=== PATIENT | male | born 1955 | race Caucasian/White ===

== ENCOUNTER 2018-07-03 19:50 | Inpatient (IN) | payer BC, OTHER ==
[2018-07-03 20:13] LABS: #Basophils 0.1 thou/uL (0.0-0.2); #Eosinphils 0.2 thou/uL (0.0-0.7); #Lymphocytes 4.5 thou/uL (1.20-3.40); %Basophils 0.4 % (0.0-1.0); %Eosinophils 1.2 % (0.0-10.0); %Lymphocytes 32.6 % (21.0-51.0); %Monocytes 6.9 % (0.0-10.0); %Neutrophils 58.8 % (42.0-75.0); Hemoglobin 16.8 g/dL (14.0-18.0); Mean Corpuscular HGB CONC 34.5 g/dL (32.0-36.0); Mean Corpuscular Hemoglobin 33.6 pg (27.0-31.0); Mean Corpuscular Volume 97.4 fL (78.0-98.0); Mean Platelet Volume 7.6 fL (7.4-10.4); Platelet Count 196 thou/uL (130-400); RBC Distribution Width 12.1 % (11.5-14.5); Red Blood Cell (RBC) Count 4.99 mill/uL (4.70-6.10); White Blood Cell (WBC) Count 13.7 thou/uL (4.8-10.8)
[2018-07-03 20:15] LABS: Base Excess-Venous -0.1 mmol/L (0 (+/- 2.5)); CO2 Tension (PvCO2) 32.9 mmHg (41.0-51.0); Calcium, Ionized 0.98 mmol/L (1.12-1.32); Hemoglobin - Calc 17.1 g/dL (12.0-18.0); Lactate 2.65 mmol/L (0.50-2.20); Potassium 5.5 mmol/L (3.4-4.7); pH (Venous) 7.452 (7.35-7.45); vO2 Saturation-calc 99.5 % (94-98)
[2018-07-03] MEDS ORDERED: Amiodarone HCl 450 MG in Dextrose 5% in Water 250 ML IVPB SCH (20:15)
[2018-07-03 20:39] LABS: ALT (SGPT) 52 U/L (8-55); AST (SGOT) 35 U/L (5-34); Albumin 4.8 g/dL (3.4-4.8); Alkaline Phosphatase 91 U/L (40-150); Anion Gap 14 mmol/L (10-20); BUN (Urea Nitrogen) 19 mg/dL (8.4-25.7); Bilirubin, Total 0.4 mg/dL (0.2-1.2); CK (CPK) 154 U/L (30-200); Calc. Creatinine Clearance 0 mL/min (70-130); Calcium 10.4 mg/dL (7.8-10.44); Carbon Dioxide 26 mmol/L (23-31); Chloride 100 mmol/L (98-107); Estimated GFR-MDRD 49; Globulin 3.4 g/dL (2.4-3.5); Glucose 154 mg/dL (80-115); Lipase 38 U/L (8-78); Magnesium 2.1 mg/dL (1.6-2.6); Potassium 4.7 mmol/L (3.5-5.1); Protein, Total 8.2 g/dL (5.8-8.1); Sodium 135 mmol/L (136-145)
[2018-07-03 20:42] LABS: CKMB 5.1 ng/mL (0-6.6)
[2018-07-03] MEDS ORDERED: Acetaminophen 325 MG TAB PO PRN (22:54)
[2018-07-03 23:42] LABS: Lactic Acid 0.9 mmol/L (0.5-2.2)
[2018-07-03 23:59] LABS: Troponin I 1.134 ng/mL (< 0.028)
[2018-07-04 01:02] VITALS: BMI 26.2
[2018-07-04] MEDS ORDERED: Dextrose 50% Abboject 50 ML SYRINGE SLOW IVP PRN (01:58)
[2018-07-04] MEDS ORDERED: Dextrose 5% in Water 1,000 ML IV PRN (01:58)
[2018-07-04] MEDS ORDERED: Insulin Regular 300 UNITS/3 ML VIAL SC PRN (01:58)
[2018-07-04] MEDS ORDERED: Aspirin 325 MG TAB PO SCH (02:00)
[2018-07-04] MEDS ORDERED: Enoxaparin Sodium 100 MG/ML SYRINGE SC SCH (02:00)
[2018-07-04] MEDS ORDERED: Atorvastatin Calcium 20 MG TAB PO SCH (02:00)
[2018-07-04 02:25] LABS: #Basophils 0.1 thou/uL (0.0-0.2); #Eosinphils 0.2 thou/uL (0.0-0.7); #Lymphocytes 2.3 thou/uL (1.20-3.40); #Monocytes 0.7 thou/uL (0.11-0.59); %Basophils 0.7 % (0.0-1.0); %Lymphocytes 25.1 % (21.0-51.0); %Monocytes 7.4 % (0.0-10.0); %Neutrophils 64.7 % (42.0-75.0); Hemoglobin 15.1 g/dL (14.0-18.0); Mean Corpuscular HGB CONC 36.2 g/dL (32.0-36.0); Mean Corpuscular Hemoglobin 34.7 pg (27.0-31.0); Mean Corpuscular Volume 95.9 fL (78.0-98.0); Mean Platelet Volume 7.1 fL (7.4-10.4); Platelet Count 144 thou/uL (130-400); RBC Distribution Width 11.9 % (11.5-14.5); Red Blood Cell (RBC) Count 4.35 mill/uL (4.70-6.10); White Blood Cell (WBC) Count 9.2 thou/uL (4.8-10.8)
[2018-07-04 02:52] LABS: Anion Gap 14 mmol/L (10-20); BUN (Urea Nitrogen) 17 mg/dL (8.4-25.7); Calc. Creatinine Clearance 94 mL/min (70-130); Calcium 9.3 mg/dL (7.8-10.44); Carbon Dioxide 23 mmol/L (23-31); Chloride 103 mmol/L (98-107); Estimated GFR-MDRD 78; Glucose 126 mg/dL (80-115); Potassium 3.5 mmol/L (3.5-5.1); Sodium 136 mmol/L (136-145)
[2018-07-04 03:02] LABS: Troponin I 2.308 ng/mL (< 0.028)
--- NOTE | 2018-07-04 05:09 | HP ---
PRIMARY CARE PHYSICIAN: Osmar Moreno. CODE STATUS: FULL CODE. TIME OF EVALUATION: 11:00 p.m. CHIEF COMPLAINT: Chest tightness. HISTORY OF PRESENT ILLNESS: This is a 63-year-old male patient with past medical history of coronary artery disease, status post CABG in 2005, after that patient has been doing very well, with no major medical problems. The patient also has history of having family members, two siblings dying at his age with a sudden that he assumes had been due to heart attacks, but never had a diagnosis. Si nce his siblings, they did not like to go to the doctor. Patient also has a history of diabetes, hyp erlipidemia, hypertension, came to the hospital after having chest pain. The chest pain has been on and off for the past day, in the left side of the chest, no specific , he reported as pressure-l karl, associated with dizzy spells when the pain was on and no other significant associated factors. The pain continued to come back and he decided to come to the hospital. He was found to be V-tach, t hat resolved after amiodarone 150 mg bolus and drip was started. Patient is back to sinus rhythm, sy mptoms have improved. During my evaluation, he is asymptomatic. Symptoms are reported as moderate w ith no clear triggers and no alleviating factors. REVIEW OF SYSTEMS: Constitutional: No fever, no chills. Generalized weakness. Respiratory: No co ugh, sputum production, or shortness of breath. Cardiovascular: Chest pain. No palpitation or shor tness of breath. Gastrointestinal: No nausea, no vomiting, diarrhea or abdominal pain. 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 Genitourinary: No burning on urination. Extremities: N o leg swelling. All other systems were reviewed and are negative except for the findings mentioned a taylor. PAST MEDICAL HISTORY: Positive for hypertension, diabetes, coronary artery disease, hyperlipidemia. PAST SURGICAL HISTORY: Positive for CABG. PSYCHIATRIC HISTORY: No previous psychiatric history. SOCIAL HISTORY: No alcohol, no drugs. No smoking history. ALLERGIES: No allergies. REPORTED MEDICATIONS: Lasix, simvastatin, Klor-Con, aspirin, lisinopril, metoprolol, Plavix, metform in, glimepiride. PHYSICAL EXAMINATION: VITAL SIGNS: On presentation, heart rate 193, respiratory rate was 16, pain was 1/10, oxygen saturat ion 98. GENERAL APPEARANCE: The patient is alert and oriented, not in any acute distress. HEENT: Eye, normal conjuctivae, moist oral mucosa, anicteric. NECK: No JVD. RESPIRATORY: Bilateral air entry. No rales, no wheezing. Symmetric expansion. CARDIOVASCULAR: Normal rate, regular rhythm. No murmurs, no gallop. No edema. ABDOMEN: Soft, normal bowel sounds. MUSCULOSKELETAL: Baseline range of motion. EXTREMITIES: No tenderness. SKIN: Warm and intact. No pallor, no rash, no redness. Peripheral pulses are present. Capillary r efill seems to be intact. NEUROLOGIC: Baseline sensory. No evidence of any new focal weakness. Baseline speech. Cranial ner ve seems to be intact. PSYCHIATRIC: Patient is in good mood, no anxiety, oriented, and optimal judgment. IMAGING: EKG was reviewed on presentation. Patient had V-tach with occasional PVCs, ventricular rat e 194 with MO remain undetermined, QRS 128, QT corrected 413. LABORATORY DATA: Reviewed. Patient has white count of 13.7, hemoglobin 16.8, MCV 97, platelet count 196. VBG: pH 7.45, pCO2 of 32, pO2 of 158. Sodium 135, potassium 4.7, chloride 100, carbon dioxid e 26, anion gap 14, BUN 19, creatinine 1.45 with no previous values to compare. GFR 49, glucose 154. Lactic acid 0.9, calcium 10.4. Initial troponin was 0.4, second troponin 1.1. Beta natriuretic pe ptide 164. Serum total protein 8.2, lipase 38. ASSESSMENT AND PLAN: The patient had been admitted for the presentation with the following medical p roblems: 1. Ventricular tachycardia has resolved with amiodarone, patient has been placing on amiodarone drip , now in sinus rhythm with no chest pain. No other symptoms, stable. Monitor in the IMCU. 2. Possible non-ST elevation myocardial infarction. Initial troponin 0.4, second troponin is 1.1, s tarted on Lovenox, aspirin, statins, beta blockers will be held since patient is on amiodarone, we wi ll follow Cardiology recommendations. 3. History of coronary artery disease, history of coronary artery bypass graft in 2005, follows ____ _ [facility], coronary artery disease may be playing a role in current presentation. Treatment as above, we will follow Cardiology recommendations. 4. Controlled hypertension. We will reconcile home medications once updated. 5. History of diabetes, it is uncontrolled, with a glucose 154, we will place the patient on the sli ding scale. 6. Deep venous thrombosis prophylaxis, patient in full-dose Lovenox.
[2018-07-04] MEDS ORDERED: Prevnar 13-Val Conj/PF 0.5 ML SYRINGE IM ONE (09:00)
[2018-07-04] MEDS ORDERED: Lisinopril 2.5 MG TAB PO SCH (09:00)
[2018-07-04] MEDS ORDERED: Enoxaparin Sodium 40 MG/0.4 ML SYRINGE SC SCH (09:00)
[2018-07-04] MEDS: Clopidogrel Bisulfate 75 MG TAB PO SCH (09:50)
[2018-07-04] MEDS: Aspirin 325 MG TAB PO SCH (09:50)
--- NOTE | 2018-07-04 10:19 | CON ---
DATE OF CONSULTATION: 07/04/2018 Following encompasses 50 minutes of time, of that greater than 50% was spent with the patient and/or the patient's unit in the hospital. REASON FOR CONSULTATION: IMCU consult. HISTORY OF PRESENT ILLNESS: This is a 63-year-old male who came in yesterday with a recurrent episod e of fluttering in the chest. He said it happened the day before admission, but he did not seek ther apy at that time. In the ER, an EKG suggesting of V-tach versus SVT with aberrancy. He has a previo us history of coronary artery disease and required bypass surgery several years ago. He is currently not having any chest pain or shortness of breath. PAST MEDICAL HISTORY: Diabetes mellitus, coronary artery disease, hypertension. PAST SURGICAL HISTORY: Coronary artery bypass grafting surgery. SOCIAL HISTORY: Does not smoke, does not consume alcohol. ALLERGIES: None. MEDICATIONS PRIOR TO ADMISSION: Lasix, simvastatin, potassium chloride, aspirin, lisinopril, metopro lol, Plavix, metformin, glimepiride. REVIEW OF SYSTEMS: Twelve point review of systems otherwise negative. PHYSICAL EXAMINATION: VITAL SIGNS: Temperature 97.1, pulse 61, blood pressure 127/64, O2 saturation 98%, respiratory rate 16. GENERAL: He is awake and alert, in no distress. HEENT: Unremarkable. NECK: Without adenopathy or JVD. CHEST: Clear without wheezing. CARDIAC: S1, S2 regular, without murmur. ABDOMEN: Soft, nontender. EXTREMITIES: No clubbing, cyanosis, or edema. NEUROLOGIC: Grossly intact throughout. LABORATORY DATA: White blood cell count 9.2, hematocrit 41, platelet count 144, pH 7.45, pCO2 of 32, pO2 158. Sodium 132, potassium 3.5, chloride 103, CO2 23, BUN 17, creatinine 0.9, glucose 126. ASSESSMENT: 1. Cardiac arrhythmia - supraventricular tachycardia versus ventricular tachycardia. 2. History of coronary artery disease. PLAN: This is solely a Cardiology issue. He is stable from a pulmonary and critical care standpoint . We will follow loosely.
[2018-07-04] MEDS ORDERED: Iopamidol 370 76% 100 ML VIAL ONE (11:26)
--- NOTE | 2018-07-04 12:06 | CON ---
DATE OF CONSULTATION: 07/04/2018 REASON FOR CONSULTATION: Ventricular tachycardia. HISTORY OF PRESENT ILLNESS: Mr. Sofia is a very pleasant 63-year-old white gentleman who comes to the hospital for palpitations and chest pain. He states that he did not feel well. Sunday, he had a little chest discomfort and he has been noticing some fluttering and some lightheadedness in the last couple of days. Yesterday, he got really bad, he decided to come in for evaluation and was found to have VT with a heart rate in the 190s in the ER, so he received a dose of IV amiodarone bolus and he converted back to sinus rhythm with a left bundle-branch block and he has been on amiodarone drip ever since. Troponin is also increased. He had a bypass surgery x4 in [address] Norton here in the hospital and he has not had a repeat stress leading several years, but he thinks he might have had an echocardiogram at least about 2 years ago at [facility] where he sees Dr. Reyes. Currently, he is chest pain free. PAST MEDICAL HISTORY: 1. Type 2 diabetes. 2. Coronary artery disease as above. 3. Hypertension. PAST SURGICAL HISTORY: Coronary artery bypass grafting x4 in 2005. SOCIAL HISTORY: No alcohol, tobacco or drugs. ALLERGIES: No known drug allergies. MEDICATIONS: 1. Metformin 500 mg p.o. b.i.d. 2. Potassium chloride 10 mEq a day. 3. Lisinopril 5 mg a day. 4. Glimepiride 2 mg a day. 5. Plavix 75 mg a day. 6. Metoprolol 12.5 mg b.i.d. 7. Zocor 20 mg a day. 8. Furosemide 20 mg a day. REVIEW OF SYSTEMS: A 12-point review of systems was done and is all negative unless stated in the history of present illness. FAMILY HISTORY: Noncontributory. PHYSICAL EXAMINATION: VITAL SIGNS: Temperature 98.0, pulse 66, respiration rate 17, sat 95% on room air, blood pressure 138/65. GENERAL: Awake, alert, oriented x3, in no distress. HEENT: Normocephalic, atraumatic. NECK: Supple. LUNGS: Clear. CARDIOVASCULAR: S1, S2, no S3, S4, no murmurs. ABDOMEN: Soft, positive bowel sounds. EXTREMITIES: No edema. SKIN: Warm and dry. LABORATORY WORK: Reviewed. White count of 13, down to 9.2, hemoglobin of 15.1 , hematocrit 41, platelet count of 144. ABG was reviewed. Chemistry was reviewed. His troponin went from 0.4 to 1.1 then 2.3, creatinine is 1.45 back down to 0.97 today. BNP was 164. Echocardiogram was reviewed, EF of 15-20%. IMPRESSION AND PLAN: 1. Wide complex tachycardia: In the setting of low ejection fraction and coronary artery disease and having a non-STEMI, this is most likely ventricular tachycardia. There is a possibility of this being SVT as he does have an underlying left bundle-branch block; however, given his LV function, I think the best thing to do is to evaluate for ischemia. We will plan on doing a left heart catheterization to make sure that his left ventricular function is not reduced due to losing some of his grafts to see if there is any revascularization by catheter based or maybe just a redo bypass may be needed. I spoke with him at length about the risks and benefits of the procedure, risks including, but not limited to stroke, MA, and need for blood transfusion, limb loss, organ loss, allergic reactions to contrast, renal insufficiency from contrast. He verbalized understanding of this and agrees to proceed. 2. Sustained ventricular tachycardia: Continue amiodarone drip for now. He will need a LifeVest before discharge versus an AICD depending on catheterization findings. 3. Dilated cardiomyopathy: New onset. According to his report, we will ask for records from [facility] to see what his last echo actually showed. Thank you for letting us participate in the care of your patient. We will follow. DANIEL
[2018-07-04] MEDS ORDERED: Midazolam HCl 2 mg/2 ml Vial ONE (12:18)
[2018-07-04] MEDS ORDERED: Fentanyl 100 MCG/2 ML VIAL ONE (12:18)
[2018-07-04] MEDS ORDERED: Acetaminophen/Codeine 30-300mg Tablet PO PRN (13:13)
[2018-07-04] MEDS ORDERED: traMADol HCl 50 MG TAB PO PRN (13:13)
[2018-07-04] MEDS ORDERED: Sodium Chloride 0.9% 1,000 ML IV SCH (13:15)
[2018-07-04] MEDS ORDERED: Sodium Chloride 0.9% 200 ML IV SCH (13:15)
--- NOTE | 2018-07-04 17:52 | PDOC.PN ---
- Subjective Encounter Start Date: 07/04/18 Encounter Start Time: 17:45 Subjective: f/u for V-tach tx with Amiodarone and s/p LHC showing stable -: CAD with recommendations for EP evaluation. Remains on Amiodarone -: gtt. - Objective Resuscitation Status: Resuscitation Status FULL:Full Resuscitation MAR Reviewed: Yes Vital Signs & Weight: Vital Signs (12 hours) Temp Pulse Resp BP BP Pulse Ox 07/04/18 15:05 97.5 F L 65 16 121/60 97 07/04/18 13:13 98.1 F 64 14 124/63 124/63 97 07/04/18 11:00 98.0 F 66 17 138/65 95 07/04/18 09:50 61 127/64 07/04/18 08:00 97.1 F L 61 16 98 07/04/18 07:41 97.1 F L 61 16 113/54 L 97 Weight Weight 193 lb 11.2 oz Result Diagrams: 07/04/18 02:04 07/04/18 02:04 Additional Labs: Accuchecks 07/04/18 07/04/18 07/04/18 16:30 10:36 06:07 POC Glucose 98 121 H 136 H Laboratory Tests 07/03/18 07/03/18 07/04/18 20:01 23:09 02:04 Troponin I 0.410 H* 1.134 H* 2.308 H* Radiology Reviewed by me: Yes (2D echo - EF 20%, diast dysfxn, global hypokinesis) EKG Reviewed by me: Yes (Tele - SR) Phys Exam - Physical Examination Constitutional: NAD HEENT: PERRLA, sclera anicteric, oral pharynx no lesions Neck: no nodes, no JVD, supple, full ROM Respiratory: no wheezing, no rales, no rhonchi, clear to auscultation bilateral S1, S2 Cardiovascular: RRR, no significant murmur, no rub, gallop Gastrointestinal: soft, non-tender, no distention, positive bowel sounds Musculoskeletal: no edema, pulses present Neurological: non-focal, normal sensation, moves all 4 limbs Psychiatric: normal affect, A&O x 3 Skin: no rash, normal turgor, cap refill <2 seconds Dx/Plan (1) Ventricular tachycardia Code(s): I47.2 - VENTRICULAR TACHYCARDIA Status: Acute Comment: Resolved with Amiodarone, LHC showing stable CAD, EP evaluation pending, continue Amiodarone gtt (2) CAD (coronary artery disease) Code(s): I25.10 - ATHSCL HEART DISEASE OF [place] CORONARY ARTERY W/O ANG PCTRS Status: Chronic Qualifiers: Coronary Disease-Associated Artery/Lesion type: bypass graft Comment: Stable by C, continue ASA/Plavix and Lipitor (3) Ischemic cardiomyopathy Code(s): I25.5 - ISCHEMIC CARDIOMYOPATHY Status: Chronic Comment: EF 25%, plan for ICD evaluation, continue Amiodarone (4) DM II (diabetes mellitus, type II), controlled Code(s): E11.9 - TYPE 2 DIABETES MELLITUS WITHOUT COMPLICATIONS Status: Chronic Comment: ISS, ADA, serial accuchecks - Plan social worker 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
[2018-07-04] MEDS: Carvedilol 3.125 MG TAB PO SCH (17:54)
[2018-07-04] MEDS: Atorvastatin Calcium 20 MG TAB PO SCH (20:08)
[2018-07-04] MEDS: Enoxaparin Sodium 40 MG/0.4 ML SYRINGE SC SCH (20:09)
--- NOTE | 2018-07-04 23:09 | CON ---
DATE OF CONSULTATION: 07/04/2018 ELECTROPHYSIOLOGY CONSULTATION REASON FOR CONSULTATION: Ventricular tachycardia and cardiomyopathy, left bundle branch block. REFERRING PHYSICIAN: Niall Bro MD HISTORY OF PRESENT ILLNESS: Mr. Sofia is a very pleasant 63-year-old man who presented to the [facility] for some mild palpitations as well as mild to moderate left anterior chest pain. He reports that f or the past couple of days he had been having intermittent chest discomfort with some mild fluttering and intermittent dizziness. He denies any radiating pain, any nausea, vomiting, passing out or near syncopal episode. He does have a history of an [place] when he was 51 years old and subsequent 4-vessel bypass done in 2005. He and his drove to the emergency room and when he arrived, he was found t o be in wide complex tachycardia interpreted as ventricular tachycardia with rates in the 190s and re ceived a dose of IV amiodarone, which slowed him and eventually prompted spontaneous conversion to si nus rhythm. He does have a left bundle branch block, as well. He is still maintained on the amiodar one drip. His troponin was slightly elevated. He underwent left heart catheterization and no signif icant occlusions were found and no PCI was performed. He is usually a patient of Dr. Reyes at [facility] and feels he might have had an echocardiogram in the remote past, but is not sure about th is and definitely does not recall the results. Currently, Mr. Sofia is on bed rest after his recent h eart catheterization. He is generally feeling well. He denies any heart racing, palpitations, chest pain, pressure, syncope, near syncope, stroke, or stroke like symptoms. The patient was found to lozoya ve a severely reduced ejection fraction of 15%-20% by echocardiogram on this hospitalization. REVIEW OF SYSTEMS: Twelve point review of systems is conducted and is negative except that listed ab ove in the HPI. PAST MEDICAL HISTORY: 1. Myocardial infarction at age 51 with a 4-vessel bypass grafting in 2005. 2. Hypertension. 3. Type 2 diabetes. SOCIAL HISTORY: Negative for alcohol, tobacco or drug use. Currently quit drinking alcohol 5 years ago and has a history of tobacco habituation [id number]. FAMILY HISTORY: Brother at age 53 from myocardial infarction and mother from myocardial infarction at age 53 as well. ALLERGIES: No known allergies. HOME MEDICATIONS: Include metformin 500 mg p.o. b.i.d., potassium chloride 10 mEq p.o. daily, Zestri l 5 mg p.o. daily, Amaryl 2 mg p.o. daily, Plavix 75 mg p.o. daily and Lopressor 12.5 mg p.o. b.i.d., Zocor 20 mg p.o. daily and Lasix 20 mg daily. OBJECTIVE: VITAL SIGNS: 97.5 degrees Fahrenheit, pulse 65, blood pressure 121/60, respirations are 16. Oxygen is 97% on room air. GENERAL: This is a well-appearing, well-groomed, alert, and oriented male in no apparent distress. His speech is clear. His affect is appropriate. HEENT: Normocephalic, atraumatic. Sclerae are anicteric. NECK: Supple, without jugular venous distention. His thyroid is not palpable. HEART: His heart rate is currently regularly regular without significant murmur, rub or gallop and h is PMI is nondisplaced. EXTREMITIES: Warm and dry to touch without clubbing, cyanosis or edema. LUNGS: Clear to auscultation. Respirations are even and unlabored. ABDOMEN: His abdominal exam is benign. He does have a recent arterial access site is right groin. The site is stable without hematoma. NEUROLOGIC: His neurologic exam is grossly intact and focal and his gait was not assessed. DATABASE: Hematology was reviewed and is unremarkable. Chemistry: Sodium 136, potassium 3.5, BUN i s 17, creatinine is 0.97. Serial troponins were collected and were highest being 2.3. Echocardiogram on 07/04/2018, ejection fraction 15%-20%. Grade 1/3 diastolic dysfunction, severe mariluz bal hypokinesis, moderately dilated left ventricle, normal size atrium bilaterally. Telemetry and EKGs were reviewed. Hs presenting EKG reveals ventricular tachycardia at a rate of 195 beats per minute, likely RVOT versus LVOT in origin. Subsequent EKGs reveal sinus rhythm with an un derlying left bundle branch block. IMPRESSION: 1. Ventricular tachycardia, LVOT versus RVOT in origin with spontaneous conversion after amiodarone loading and drip initiation. 2. Left bundle branch block. 3. Newly diagnosed cardiomyopathy with an ejection fraction of 15%-20%, previously assumed to be nor mal, though these records are not available at this time. These records have been requested by previ ous documentation. RECOMMENDATIONS: 1. Recommend moving forward with a BiVICD implantation for protection from recurrent ventricular tac hycardia episodes, especially in the setting of his cardiomyopathy. 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 2. Continue amiodarone for arrhythmia suppression. This is a very ablatable rhythm, which was discu ssed with the patient and presented as an option to him. This can be considered as an outpatient [employer]. 3. Continue medical management for his cardiomyopathy. Thank you for allowing me to participate in the care of this patient. We will keep him n.p.o. for po ssible implant tomorrow schedule permitting. The patient voiced understanding. All questions have b een answered.
[2018-07-04] MEDS: Amiodarone HCl 450 MG, Admixture Fee 1 EACH in Dextrose 5% in Water 250 ML IVPB SCH (23:12)
[2018-07-05] MEDS ORDERED: Propofol 500 MG/50 ML VIAL ONE ×2 (06:41→11:35)
--- NOTE | 2018-07-05 07:50 | RAD ---
PORTABLE CHEST 1 VIEW: DATE: 07/03/18. TIME: 8:17 p.m. HISTORY: Chest pain. FINDINGS: There are changes of median sternotomy. The heart size is normal. The lungs are expanded without lo bar consolidation, pneumothoraces, or pleural effusions. IMPRESSION: No acute process. POS: ROJELIO
--- NOTE | 2018-07-05 07:55 | PRG ---
DATE OF SERVICE: 07/05/2018 The patient is doing well, had no acute complaints. PHYSICAL EXAMINATION: VITAL SIGNS: Temperature 97.4, pulse 65, respirations 19, O2 sat 94%, blood pressure 143/77. HEENT: Unremarkable. NECK: No JVD. CHEST: Clear without wheezing or rhonchi. CARDIAC: S1 and S2 regular. ABDOMEN: Soft. EXTREMITIES: No edema. LABORATORY DATA: No labs were obtained today. ASSESSMENT: 1. Ventricular tachycardia. 2. Cardiomyopathy with ejection fraction of 15-20%. PLAN: Defibrillator is planned for today. I have reviewed his orders. This is mainly cardiac issue . I suspect the patient will be transferred out to the telemetry floor. No further pulmonary recomm endations. We will sign off. Please recall if further assistance needed.
[2018-07-05] MEDS ORDERED: Gentamicin 80 MG/2 ML VIAL ONE (09:10)
[2018-07-05] MEDS ORDERED: CEFAZOLIN/Water 2 GM/20 ML SYRINGE ONE (09:10)
[2018-07-05] MEDS ORDERED: CEFAZOLIN 1 GM VIAL ONE (09:10)
[2018-07-05] MEDS: Aspirin 325 MG TAB PO SCH (09:37)
[2018-07-05] MEDS: Clopidogrel Bisulfate 75 MG TAB PO SCH (09:37)
[2018-07-05] MEDS: Carvedilol 3.125 MG TAB PO SCH (09:37)
[2018-07-05] MEDS ORDERED: Midazolam HCl 5 mg/5 ml Vial ONE (10:23)
[2018-07-05] MEDS ORDERED: Ketamine 50 MG/ML VIAL ONE (10:23)
[2018-07-05] MEDS ORDERED: Promethazine HCl 25 MG/ML VIAL IM PRN (12:15)
[2018-07-05] MEDS ORDERED: Ondansetron HCl/PF 4 MG/2 ML Vial IVP PRN (12:15)
[2018-07-05] MEDS ORDERED: Promethazine HCl 25 MG/ML VIAL SLOW IVP PRN (12:15)
--- NOTE | 2018-07-05 12:43 | OP ---
DATE OF PROCEDURE: 07/05/2018 PROCEDURE: Dual chamber resynchronization defibrillator implantation. CLINICAL INDICATION: 1. Documented sustained monomorphic ventricular tachycardia. 2. Severe cardiomyopathy, probably nonischemic. 3. Left bundle branch block. PUMP MACHINE OPERATOR: Christian Crow M.D. ASA CLASSIFICATION: 3. ANESTHESIA: Total IV anesthesia per Anesthesiology. ADDITIONAL CARDIAC MEDICATIONS: None. ESTIMATED BLOOD LOSS: Less than 10 mL. TOTAL FLUOROSCOPY TIME: 14.6 minutes. ACUTE COMPLICATIONS: None. METHOD: After informed consent was obtained, the patient was brought to the EP lab in a fasting stat e. The shoulder area was prepped and draped in the usual, sterile fashion. Using a #15 blade, an in cision was made in a horizontal fashion and a pocket was formed in the infra-clavicular fossa caudall y. Using an 18 gauge needle, the central venous system was accessed and a guide wire was inserted in to the right atrium. This process was repeated for all lead requirements. [place] were removed and the wires were used to insert access sheaths. The dilators and wires were removed and the sheaths we re used to insert the implantable leads. The sheaths were torn away. Using fluoroscopy guidance, th e leads were positioned into the desired and tested areas of cardiac tissue. After confirmation of p acing and sensing function, the leads were secured to the pectoralis muscle with silk suture. Ventri cular fibrillation was induced via the device and the device was allowed to detect and defibrillate t he arrhythmia. The pocket was irrigated with copious antibiotic and saline solution. The device was connected to the leads and inserted into the pocket. This was secured to the pectoralis with silk. The pocket incision was closed with simple, running layers of 2-0 and 4-0 Vicryl suture. The skin w as closed with sub-cuticular 5-0 Monocryl suture. Dermabond was applied to the incision. The patien t was allowed to withdrawal from sedation and left the EP lab in a stable condition. RESULTS: 1. Pacing lead thresholds atrial threshold 0.75 volts at 0.4 milliseconds, impedance 456 ohms. RV t hreshold 0.75 volts at 0.4 milliseconds, impedance 551 ohms. LV threshold 2.5 volts at 1 millisecond , impedance 513 ohms, 10 volts did not stimulate diaphragm. 2. Signal analysis P-wave amplitude 2.1 millivolts, ____ none detectable, patient developed complete heart block during the procedure. 3. Ventricular function. The patient had an episode of sustained VT requiring cardioversion prior t o placement of the defibrillator. This was consistent with the patient's clinical arrhythmia. VF wa s induced with a T-wave shock method 20 joules delivered restoring a paced rhythm, charge time 4.6 se conds. Shock lead impedance 63 ohms, 100% sensing was seen at 1.2 millivolts sensitivity. 4. Serial numbers: The device was a Medtronic model [id number], serial number [id number]. Atrial lenny d was Medtronic model 5076-52, serial number [id number], RV lead was a Medtronic model 6935-62, seri al number [id number], LV lead was Medtronic model 4298-780, serial number [id number]. IMPRESSION: Successful insertion and testing of a dual chamber resynchronization defibrillator. RECOMMENDATION: Antibiotic prophylaxis.
[2018-07-05] MEDS: Amiodarone HCl 450 MG, Admixture Fee 1 EACH in Dextrose 5% in Water 250 ML IVPB SCH (13:24)
--- NOTE | 2018-07-05 13:33 | PDOC.CTH ---
Cardiology Progress Note - Subjective EP progress note: Patient doing well after ICD implant. Mild pain at implant site otherwise without complaint or concern. - Objective Vital Signs Temp Pulse Resp BP Pulse Ox 07/05/18 08:10 97.4 F L 65 19 95 07/05/18 07:25 97.4 F L 65 19 143/77 H 94 L 07/05/18 04:17 97.2 F L 60 19 139/73 95 Weight 194 lb 07/04/18 07/05/18 07/06/18 06:59 06:59 06:59 Intake Total 2016 Output Total 1750 Balance 267 - Physical Examination General/Neuro: alert & oriented x3, NAD Neck: carotid US brisk, no JVD present Lungs: CTA, unlabored respirations Heart: PMI normal, RRR Abdomen: no HSM, NT/ND Other PE findings: incision to left chest/shoulder CDI - Telemetry Telemetry Rhythm: NSR - Labs Result Diagrams: 07/04/18 02:04 07/04/18 02:04 Troponin/CKMB CK-MB (CK-2) 5.1 ng/mL (0-6.6) 07/03/18 20:01 Troponin I 2.308 ng/mL (< 0.028) H* 07/04/18 02:04 - Assessment/Plan 1. 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 BiV ICD placed 07/05/18 3. CAD, 4V CABG in 2005, [facility] this visit, no PCI needed 4. Cardiomyopathy, newly diagnosed. medical management by cardiology Repeat episode of VT requiring defibrillation during ICD placement this AM. Also went asystolic briefly intraop, fortunately after leads were placed. Continue PO keflex x 7 days post implant. Wound check at [facility] in 1- 2 weeks. ice packs and pressure dressings PRN to site as per post implant orders. Anticipating VT ablation in the future which will be addressed as outpatient. Amiodarone stopped. Watch overnight and if rhythm remains stable, ok by EP to DC tomorrow.
--- NOTE | 2018-07-05 13:58 | PDOC.CTH ---
Cardiology Progress Note - Objective Vital Signs Temp Pulse Resp BP Pulse Ox 07/05/18 08:10 97.4 F L 65 19 95 07/05/18 07:25 97.4 F L 65 19 143/77 H 94 L 07/05/18 04:17 97.2 F L 60 19 139/73 95 Weight 194 lb 07/04/18 07/05/18 07/06/18 06:59 06:59 06:59 Intake Total 2017 Output Total 1750 Balance 267 - Physical Examination General/Neuro: alert & oriented x3, NAD Neck: no JVD present Lungs: CTA, unlabored respirations Heart: RRR Abdomen: NT/ND Extremities: other: (No edema.) - Telemetry Telemetry Rhythm: NSR - Labs Result Diagrams: 07/04/18 02:04 07/04/18 02:04 Troponin/CKMB CK-MB (CK-2) 5.1 ng/mL (0-6.6) 07/03/18 20:01 Troponin I 2.308 ng/mL (< 0.028) H* 07/04/18 02:04 - Assessment/Plan 1. VT polymorphic 2. Stable CAD. 3. LBBB 4. Dilated CM EF at 15-20% on echo. 5. S/P AICD PLAN: - Continue Amiodarone load. - May transfer to telemetry and [facility] tomorrow.
[2018-07-05] MEDS ORDERED: PROPOFOL 200 MG/20 ML VIAL ONE (14:43)
--- NOTE | 2018-07-05 17:37 | PDOC.PN ---
- Subjective Encounter Start Date: 07/05/18 Encounter Start Time: 17:25 Subjective: f/u for V-tach s/p AICD 07/05/18. Remains on Amiodarone gtt -: Feels fine without dyspnea or CP. - Objective Resuscitation Status: Resuscitation Status FULL:Full Resuscitation MAR Reviewed: Yes Vital Signs & Weight: Vital Signs (12 hours) Temp Pulse Resp BP BP Pulse Ox 07/05/18 15:24 98.8 F 74 16 133/65 95 07/05/18 13:13 97.6 F 72 16 156/77 H 156/77 H 97 07/05/18 08:10 97.4 F L 65 19 95 07/05/18 07:25 97.4 F L 65 19 143/77 H 94 L Weight Weight 194 lb I&O: 07/04/18 07/05/18 07/06/18 06:59 06:59 06:59 Intake Total 2017 250 Output Total 1750 0 Balance 267 250 Result Diagrams: 07/04/18 02:04 07/04/18 02:04 Additional Labs: Accuchecks 07/05/18 07/05/18 07/04/18 16:33 05:43 19:56 POC Glucose 169 H 127 H 170 H Laboratory Tests 07/03/18 07/03/18 07/04/18 20:01 23:09 02:04 Troponin I 0.410 H* 1.134 H* 2.308 H* EKG Reviewed by me: Yes (Tele - SR) Phys Exam - Physical Examination Constitutional: NAD HEENT: PERRLA, sclera anicteric, oral pharynx no lesions Neck: no nodes, no JVD, supple, full ROM Respiratory: no wheezing, no rales, no rhonchi, clear to auscultation bilateral S1, S2 Cardiovascular: RRR, no significant murmur, no rub, gallop Gastrointestinal: soft, non-tender, no distention, positive bowel sounds Musculoskeletal: no edema, pulses present Neurological: non-focal, normal sensation, moves all 4 limbs Psychiatric: normal affect, A&O x 3 Skin: normal turgor, cap refill <2 seconds Dx/Plan (1) Ventricular tachycardia Code(s): I47.2 - VENTRICULAR TACHYCARDIA Status: Acute Comment: Resolved with Amiodarone, LHC showing stable CAD, s/p AICD placement , continue Amiodarone gtt then convert to po in am (2) CAD (coronary artery disease) Code(s): I25.10 - ATHSCL HEART DISEASE OF [place] CORONARY ARTERY W/O ANG PCTRS Status: Chronic Qualifiers: Coronary Disease-Associated Artery/Lesion type: bypass graft Comment: Stable by [facility], continue ASA/Plavix and Lipitor (3) Ischemic cardiomyopathy Code(s): I25.5 - ISCHEMIC CARDIOMYOPATHY Status: Chronic Comment: EF 25%, s/ p AICD, continue Amiodarone (4) DM II (diabetes mellitus, type II), controlled Code(s): E11.9 - TYPE 2 DIABETES MELLITUS WITHOUT COMPLICATIONS Status: Chronic Comment: ISS, ADA, serial accuchecks - Plan out of bed/ambulate, DVT proph w/SCDs Stable overall -: Convert to Amiodarone 400mg BID -: Continue dual antiplatelet therapy with ASA/Plavix -: Continue Lisinopril 5mg daily -: Likely d/c home 07/06/18 * .
[2018-07-05] MEDS: Atorvastatin Calcium 20 MG TAB PO SCH (20:54)
[2018-07-05] MEDS: Amiodarone 200 MG TAB PO SCH (20:54)
[2018-07-05] MEDS: Enoxaparin Sodium 40 MG/0.4 ML SYRINGE SC SCH (20:55)
[2018-07-05] MEDS: Metoprolol Tartrate 25 MG TAB PO SCH (20:56)
[2018-07-06 08:04] VITALS: BP 151/76; TEMP 99
[2018-07-06] MEDS ORDERED: Lisinopril 5 MG TAB PO SCH (09:00)
[2018-07-06] MEDS ORDERED: Furosemide 40 MG TAB PO SCH (09:00)
--- NOTE | 2018-07-06 09:30 | PDOC.CTH ---
Cardiology Progress Note - Subjective No complaints today. Feeling well overall. - Objective Vital Signs Temp Pulse Resp BP Pulse Ox 07/06/18 08:02 99.0 F 78 16 151/76 H 97 07/06/18 05:00 98.6 F 79 14 125/80 93 L 07/06/18 00:05 99.1 F 73 16 143/78 H 94 L Weight 191 lb 12.8 oz 07/05/18 07/06/18 07/07/18 06:59 06:59 06:59 Intake Total 2016 250 Output Total 1750 0 Balance 267 250 - Physical Examination General/Neuro: alert & oriented x3 Lungs: CTA Heart: RRR Abdomen: NT/ND Extremities: other: (no edema) Other PE findings: ICD site without drainage, erythema or hematoma - Telemetry Telemetry Rhythm: v-paced - Labs Result Diagrams: 07/04/18 02:04 07/04/18 02:04 Troponin/CKMB CK-MB (CK-2) 5.1 ng/mL (0-6.6) 07/03/18 20:01 Troponin I 2.308 ng/mL (< 0.028) H* 07/04/18 02:04 - Assessment/Plan 1. Polymorphic VT 2. CAD s/p CABG 3. LBBB 4. Dilated CM EF at 15-20% 5. S/P AICD No adjustments to meds. Doing well overall. Ok for discharge and can f/u with Dr. Reyes as outpatient.
[2018-07-06] MEDS: Clopidogrel Bisulfate 75 MG TAB PO SCH (10:47)
[2018-07-06] MEDS: Amiodarone 200 MG TAB PO SCH (10:48)
[2018-07-06] MEDS: Metoprolol Tartrate 25 MG TAB PO SCH (10:48)
[2018-07-06] MEDS: Aspirin 325 MG TAB PO SCH (10:48)
--- NOTE | 2018-07-06 18:23 | DIS ---
DATE OF ADMISSION: 07/04/2018 DATE OF DISCHARGE: 07/06/2018 PRIMARY CARE PHYSICIAN: Dr. Soren funez at [facility]. PRIMARY SLICE PLUG CUTTER OPERATOR: Oracio Reyes at [facility]. DISCHARGE DISPOSITION: Home. DISCHARGE DIAGNOSES: 1. Polymorphic ventricular tachycardia. 2. Coronary artery disease status post CABG in the past. 3. Left bundle branch block. 4. New diagnosis of dilated cardiomyopathy with EF of 15%-20%, status post AICD placement. 5. Diabetes mellitus. DISCHARGE MEDICATIONS: New medications as follows; amiodarone 400 mg p.o. b.i.d. for 3 days, then 20 0 mg p.o. b.i.d. for 3 weeks, then 200 mg p.o. daily, aspirin 325 mg daily, Keflex 250 mg every 6 chacorta rs for 5 more days and Buna as needed. Resume following home medications; Lasix 20 mg daily, Zocor 20 mg daily, metoprolol tartrate 12.5 mg p.o. b.i.d., Plavix 75 mg daily, glimepiride 2 mg daily, lis inopril 5 mg daily, potassium chloride 10 mEq daily, and metformin 500 mg p.o. b.i.d. INHOUSE CONSULTATIONS: 1. Cardiology, Dr. Bro. 2. Electrophysiology, Dr. Crow and Dr. Melvin. PROCEDURES DONE IN THE HOSPITAL: 1. Cardiac catheterization which showed stable coronary artery disease with severe LAD and left circ umflex. Critic HERNANDEZ was seen. Patent SVG to diagonal was seen, SVG to obtuse marginal was patent. Ejection fraction 25%-30%. 2. Transthoracic echocardiogram which shows EF of 15%-20% and grade 1/3 diastolic dysfunction, sever e global hypokinesis and moderate left ventricular dilatation. 3. Placement of AICD by Dr. Crow on 07/05/2018 with dual chamber resynchronization defibrillator o f [employer]. HISTORY OF PRESENT ILLNESS: Mr. Sofia is a very pleasant 63-year-old male with known history of coron albin artery disease, hypertension, dyslipidemia, and diabetes who follows up with Cardiology at [facility] presented to the emergency room with complaints of chest tightness for a day or two. Upon presentation to the emergency room, he was found to be in ventricular tachycardia and was given amiod arone bolus and then amiodarone drip was started. He was converted back to sinus rhythm with this christine cartermariam. He was admitted for further evaluation and Cardiology was consulted. His cardiac enzymes we re found to be elevated with initial troponin of 0.4 and second troponin of 1.1. His BNP was 164. Cele tirado see admission history and physical for further details. HOSPITAL COURSE: Cardiology saw the patient and they recommended that given his history of extensive coronary artery disease and presentation with ventricular tachycardia, he should undergo cardiac cat heterization for reevaluation. His coronary artery disease was found to be stable and Dr. Bro rec ommended continuation and optimization of medical management. His aspirin was increased to 325 mg. His echocardiogram was done and the echo as well as the catheterization showed low ejection fraction. For this reason, Electrophysiology was consulted and Dr. Christian Crow saw the patient and recommen ded AICD placement. This was done yesterday and the patient tolerated the procedure very well. All the meanwhile, he was continued on amiodarone drip, but it was later converted to oral and the patien t did not have any more episodes of arrhythmias. This morning, the patient has been cleared for discharge from Cardiology and has been clinically stab le and is eager to go home. He is hemodynamically stable and will be discharged. He was seen and examined prior to discharge. PHYSICAL EXAMINATION: VITAL SIGNS: This morning temperature 99, pulse of 70, respirations 16, saturating 97% on room air, blood pressure 151/76. GENERAL: No acute distress, awake, alert, oriented x3. CHEST: Clear to auscultation without any wheezing. Rate and rhythm is regular. AICD placement site looks clean without any wheezing from the surgical incision. LABORATORY DATA: Most recent blood sugar 150. Discharge plan was discussed with the patient and his family member present in the room. They verbal ized understanding. New prescriptions were provided to the patient. Total time spent in the discharge of this patient 32 minutes.
== END 2018-07-06 12:30 | disposition home or self-care (01) | DRG 227 ==
LOC: ERS 19:50 → IMCU/EMU 21:27 → 2NO 07-05 23:05
PROVIDERS: ADMIT Hospitalist; ATTEND Hospitalist
PROC: 0JH609Z Insertion of Cardiac Resynchronization Defibrillator Pulse Generator into Chest Subcutaneous Tissue and Fascia, Open Approach (ICD-10-PCS; principal; 2018-07-05)
PROC: 02HK3KZ Insertion of Defibrillator Lead into Right Ventricle, Percutaneous Approach (ICD-10-PCS; 2018-07-05)
PROC: 02H63KZ Insertion of Defibrillator Lead into Right Atrium, Percutaneous Approach (ICD-10-PCS; 2018-07-05)
DX: I47.2 Ventricular tachycardia (principal); I42.0 Dilated cardiomyopathy; I25.10 Atherosclerotic heart disease of native coronary artery without angina pectoris; I10 Essential (primary) hypertension; E11.9 Type 2 diabetes mellitus without complications; E78.5 Hyperlipidemia, unspecified; I44.7 Left bundle-branch block, unspecified; I25.5 Ischemic cardiomyopathy; Z95.1 Presence of aortocoronary bypass graft
CPT/HCPCS: 33225; 33249; 36005; 36415; 36416; 71045; 75820; 80048; 80053; 82330; 82550; 82553; 82803; 83605; 83690; 83735; 83880; 84484; 85025; 90471; 90670; 93005; 93306; 93455; 96365; 96366; 96374; 99152; 99153; C1730; C1769; C1777; C1882; C1898; C1900; G0009; J0282; J0690; J1580; J1644; J1650; J2250; J2704; J3010; J7070